=== PATIENT | female | born 1935 | race Caucasian/White ===

== ENCOUNTER 2016-12-14 08:14 | Inpatient (IN) | payer OTHER ==
[~2016-12-14] VITALS: Ht 170.2 cm; Wt 95.3 kg
--- NOTE | ~2016-12-14 | EKG ---
[address] [address] ELECTROCARDIOGRAM REPORT Name: LIZ BOWLING Room #: 442-P [facility] IN M.R.#: [id number] Admission: 12/14/16 Attend Phys: Pablo Ross MD Discharge: Date of : 37 Report #: [id number] THIS REPORT FOR: //name// [facility] ED Test Date: 2016-12-14 Test Time: 09:01:17 Pat Name: LIZ BOWLING Department: Room: [facility] Gender: F Relocation Coordinator: LENA : 1935 Requested By: Abiel Huang Order Number: [id number] MD: Jessee Bolanos Measurements Intervals [place] Rate: 108 P: 48 ID: [id number] QRS: 69 QRSD: 152 T: -18 QT: 375 QTc: 503 Interpretive Statements Sinus tachycardia Right bundle branch block Compared to ECG 11/05/2006 23:42:10 Sinus rhythm no longer present Electronically Signed On 12-14-2016 22:28:16 CDT by Jessee Bolanos [email or web address] <ELECTRONICALLY SIGNED> By: Jessee Bolanos MD 12/14/16 2228 0901 0901 Jessee Bolanos MD /LINDY
[2016-12-14 08:15] VITALS: BP 207/89
[2016-12-14] MEDS ORDERED: LIPITOR10 MG PO (08:20)
[2016-12-14] MEDS ORDERED: TIMOLOL MA0.25 %/5 M OP (08:20)
[2016-12-14] MEDS ORDERED: ASPIRIN325 PO (08:20)
[2016-12-14] MEDS ORDERED: NORVASC2.5 MG PO (08:20)
[2016-12-14] MEDS ORDERED: MULTI-VITAMIN1 EAC5 PO (08:21)
[2016-12-14 09:26] LABS: HEMOGLOBIN 12.8 gm/dL (12.0-15.0); MCH 30.5 pg (26.0-34.0); MCHC 34.5 g/dL (28.0-37.0); MCV 88.3 fL (80.0-100.0); PLATELET COUNT 156 thou/uL (150-400); RBC 4.19 mil/uL (4.20-5.00); RDW 14.9 % (10.5-14.5); WBC 12.3 thou/uL (4.0-11.0)
[2016-12-14 09:29] LABS: MANUAL DIFF YES
[2016-12-14 09:36] LABS: CALCIUM 8.8 mg/dL (8.5-10.1); CREATININE 0.9 mg/dL (0.6-1.0)
[2016-12-14 09:38] LABS: POTASSIUM 3.1 mmol/L (3.5-5.1)
[2016-12-14 09:43] LABS: ALBUMIN 3.2 g/dL (3.4-5.0); TOTAL BILIRUBIN 6.6 mg/dL (<0.1-1.0); TOTAL PROTEIN 6.7 g/dL (6.4-8.2); TROPONIN-I 0.07 ng/mL (<0.04-0.07)
[2016-12-14 09:54] LABS: ABSOLUTE NEUTROPHILS 11.2 thou/uL (1.4-8.2); ANISOCYTOSIS 1+; TOTAL CELL COUNT 100
[2016-12-14 10:27] LABS: URINE BILIRUBIN 2+ (Negative); URINE BLOOD 1+ (Negative); URINE COLOR YELLOW; URINE GLUCOSE-RANDOM* NEGATIVE (Negative); URINE KETONES 2+ (Negative); URINE NITRITE POSITIVE (Negative); URINE PROTEIN (DIPSTICK) 1+ (Negative)
[2016-12-14 10:29] LABS: ICTOTEST (BILI CONFIRMATORY) Positive (Negative)
[2016-12-14 10:50] LABS: SQUAMOUS 4-10 Moderate /LPF (0-3); URINE WBC 6-15 Few /HPF (0-5)
[2016-12-14 10:51] LABS: BACTERIA >30 Many /HPF (None Seen); CASTS None Seen /LPF (None Seen); CRYSTALS None Seen /LPF (None Seen); URINE RBC 0-2 Rare /HPF (0-2)
[2016-12-14 11:10] VITALS: BP 182/83
[2016-12-14 11:37] VITALS: BP 178/71
[2016-12-14 15:49] VITALS: BP 141/63
[2016-12-14 19:48] VITALS: BP 138/49
[2016-12-15 04:43] VITALS: BP 148/50
[2016-12-15 05:10] LABS: HEMATOCRIT 31.4 % (37.0-47.0); MCH 30.9 pg (26.0-34.0); MCHC 34.8 g/dL (28.0-37.0); MCV 88.6 fL (80.0-100.0); RBC 3.55 mil/uL (4.20-5.00); RDW 15.4 % (10.5-14.5); WBC 6.8 thou/uL (4.0-11.0)
[2016-12-15 05:14] LABS: INR 1.2; PROTIME 11.9 Seconds (9.3-11.4)
[2016-12-15 05:27] LABS: ALBUMIN 2.5 g/dL (3.4-5.0); POTASSIUM 3.4 mmol/L (3.5-5.1); TOTAL BILIRUBIN 6.7 mg/dL (<0.1-1.0)
[2016-12-15 05:50] LABS: TOTAL PROTEIN 5.9 g/dL (6.4-8.2)
[2016-12-15 07:48] VITALS: BP 146/52
[2016-12-15 18:00] VITALS: BP 175/64
[2016-12-15 18:30] VITALS: BP 170/63
[2016-12-15 19:07] VITALS: BP 161/54
[2016-12-15 21:05] VITALS: BP 154/53
[2016-12-16] VITALS (11 sets, daily range): BP systolic 147–191; BP diastolic 49–88
[2016-12-16 06:31] LABS: HEMOGLOBIN 10.5 gm/dL (12.0-15.0); MCHC 34.9 g/dL (28.0-37.0); MCV 88.7 fL (80.0-100.0); RBC 3.38 mil/uL (4.20-5.00); RDW 15.5 % (10.5-14.5); WBC 6.6 thou/uL (4.0-11.0)
[2016-12-16 06:53] LABS: ALBUMIN 2.3 g/dL (3.4-5.0); CALCIUM 8.4 mg/dL (8.5-10.1); CREATININE 0.9 mg/dL (0.6-1.0); POTASSIUM 3.9 mmol/L (3.5-5.1); TOTAL BILIRUBIN 3.3 mg/dL (<0.1-1.0); TOTAL PROTEIN 5.7 g/dL (6.4-8.2)
[2016-12-17] VITALS (7 sets, daily range): BP systolic 150–198; BP diastolic 51–60
[2016-12-17 06:23] LABS: ABSOLUTE NEUTROPHILS 4.5 thou/uL (1.4-8.2); BASOPHILS 0.4 % (0.0-2.0); EOSINOPHILS 2.2 % (0.0-3.0); HEMATOCRIT 31.2 % (37.0-47.0); HEMOGLOBIN 10.7 gm/dL (12.0-15.0); LYMPHOCYTES 15.9 % (24.0-44.0); MCH 30.5 pg (26.0-34.0); MCHC 34.5 g/dL (28.0-37.0); MCV 88.5 fL (80.0-100.0); MONOCYTES 4.6 % (1.0-8.0); PLATELET COUNT 152 thou/uL (150-400); POLYS 76.9 % (36.0-66.0); RBC 3.52 mil/uL (4.20-5.00); RDW 15.2 % (10.5-14.5); WBC 5.8 thou/uL (4.0-11.0)
[2016-12-17 06:32] LABS: MANUAL DIFF NO
[2016-12-17 06:41] LABS: ALBUMIN 2.2 g/dL (3.4-5.0); CALCIUM 8.6 mg/dL (8.5-10.1); CREATININE 0.7 mg/dL (0.6-1.0); MAGNESIUM 1.8 mg/dL (1.8-2.4); POTASSIUM 3.5 mmol/L (3.5-5.1); TOTAL PROTEIN 5.8 g/dL (6.4-8.2)
[2016-12-18 03:07] VITALS: BP 154/67
[2016-12-18 07:16] VITALS: BP 166/63
[2016-12-18 10:14] VITALS: BP 166/63
[2016-12-18 16:12] VITALS: BP 174/76
[2016-12-18 20:09] VITALS: BP 152/61
[2016-12-19 03:46] LABS: HEMATOCRIT 31.4 % (37.0-47.0); HEMOGLOBIN 10.9 gm/dL (12.0-15.0); MCH 30.4 pg (26.0-34.0); MCHC 34.6 g/dL (28.0-37.0); MCV 87.8 fL (80.0-100.0); RBC 3.58 mil/uL (4.20-5.00); RDW 14.7 % (10.5-14.5); WBC 5.3 thou/uL (4.0-11.0)
[2016-12-19 04:00] LABS: ALBUMIN 2.2 g/dL (3.4-5.0); CALCIUM 8.5 mg/dL (8.5-10.1); CREATININE 0.8 mg/dL (0.6-1.0); POTASSIUM 3.3 mmol/L (3.5-5.1); TOTAL BILIRUBIN 1.2 mg/dL (<0.1-1.0); TOTAL PROTEIN 5.9 g/dL (6.4-8.2)
[2016-12-19 04:20] VITALS: BP 164/56
[2016-12-19 07:32] VITALS: BP 150/56
[2016-12-19 15:52] VITALS: BP 122/84
[2016-12-19 20:31] VITALS: BP 173/63
[2016-12-20 04:24] LABS: HEMATOCRIT 32.6 % (37.0-47.0); HEMOGLOBIN 11.2 gm/dL (12.0-15.0); MCH 30.3 pg (26.0-34.0); MCHC 34.4 g/dL (28.0-37.0); MCV 88.2 fL (80.0-100.0); RBC 3.7 mil/uL (4.20-5.00); RDW 14.5 % (10.5-14.5); WBC 5.5 thou/uL (4.0-11.0)
[2016-12-20 04:49] LABS: ALBUMIN 2.4 g/dL (3.4-5.0); CALCIUM 8.6 mg/dL (8.5-10.1); CREATININE 0.9 mg/dL (0.6-1.0); POTASSIUM 3.6 mmol/L (3.5-5.1); TOTAL BILIRUBIN 1.1 mg/dL (<0.1-1.0); TOTAL PROTEIN 6.2 g/dL (6.4-8.2)
[2016-12-20 05:00] VITALS: BP 155/60
[2016-12-20 08:00] VITALS: BP 143/62
[2016-12-20] MEDS ORDERED: FLAGYL500 MG PO (09:49)
[2016-12-20] MEDS ORDERED: AMLODIPINE BESY10 MG PO (09:49)
[2016-12-20] MEDS ORDERED: CIPRO500 MG PO (09:49)
[2016-12-20] MEDS ORDERED: NORCO 5-325 TA1 EACH PO (09:49)
== END 2016-12-20 11:17 | disposition home health service (06) | DRG 871 ==
LOC: ER 08:14 → 4S 10:45 → EROBS 10:45 → 4S 11:13
PROVIDERS: Emergency Medicine; Internal Medicine Gastroenterology; Nurse Practitioner; Nurse Practitioner Adult Health; Otolaryngology
PROC: 0F9430Z Drainage of Gallbladder with Drainage Device, Percutaneous Approach (ICD-10-PCS; principal; 2016-12-15)
PROC: BF43ZZZ Ultrasonography of Gallbladder and Bile Ducts (ICD-10-PCS; principal; 2016-12-15)
DX: A41.9 Sepsis, unspecified organism (principal); K85.10 Biliary acute pancreatitis without necrosis or infection; K80.62 Calculus of gallbladder and bile duct with acute cholecystitis without obstruction; N39.0 Urinary tract infection, site not specified; E46 Unspecified protein-calorie malnutrition; I10 Essential (primary) hypertension; E78.00 Pure hypercholesterolemia, unspecified; E78.5 Hyperlipidemia, unspecified; E87.6 Hypokalemia; H40.9 Unspecified glaucoma; I25.10 Atherosclerotic heart disease of native coronary artery without angina pectoris; Z95.5 Presence of coronary angioplasty implant and graft; Z68.32 Body mass index [BMI] 32.0-32.9, adult; Z90.710 Acquired absence of both cervix and uterus; Z88.2 Allergy status to sulfonamides; Z82.49 Family history of ischemic heart disease and other diseases of the circulatory system
CPT/HCPCS: 10100

== ENCOUNTER → 2017-01-08 | Outpatient (CLI) | payer OTHER ==
[~2017-01-08] VITALS: Ht 170.2 cm; Wt 92.1 kg
[~2017-01-08] MED LIST: AMLODIPINE BESY10 MG PO; ASPIRIN325 PO; CIPRO500 MG PO; FLAGYL500 MG PO; LIPITOR10 MG PO; MULTI-VITAMIN1 EAC5 PO; NORCO 5-325 TA1 EACH PO; NORVASC2.5 MG PO; TIMOLOL MA0.25 %/5 M OP
[2017-01-08 10:12] VITALS: BP 155/69
[2017-01-08 11:22] LABS: ABSOLUTE NEUTROPHILS 2.9 thou/uL (1.4-8.2); EOSINOPHILS 4.4 % (0.0-3.0); HEMATOCRIT 34.7 % (37.0-47.0); HEMOGLOBIN 12.1 gm/dL (12.0-15.0); LYMPHOCYTES 27.6 % (24.0-44.0); MCH 30.2 pg (26.0-34.0); MCHC 34.9 g/dL (28.0-37.0); MCV 86.4 fL (80.0-100.0); MONOCYTES 7.8 % (1.0-8.0); PLATELET COUNT 196 thou/uL (150-400); POLYS 59.2 % (36.0-66.0); RBC 4.02 mil/uL (4.20-5.00); RDW 15.1 % (10.5-14.5)
[2017-01-08 11:28] LABS: MANUAL DIFF NO
[2017-01-08 11:33] LABS: ALBUMIN 3.2 g/dL (3.4-5.0); CALCIUM 9.2 mg/dL (8.5-10.1); CREATININE 0.9 mg/dL (0.6-1.0); POTASSIUM 3.9 mmol/L (3.5-5.1); TOTAL BILIRUBIN 0.9 mg/dL (<0.1-1.0); TOTAL PROTEIN 6.5 g/dL (6.4-8.2)
== END | disposition home or self-care (01) ==
LOC: SPEC 09:14
PROVIDERS: Family Medicine
DX: K81.9 Cholecystitis, unspecified (principal); I10 Essential (primary) hypertension; E78.5 Hyperlipidemia, unspecified; Z90.710 Acquired absence of both cervix and uterus; Z90.49 Acquired absence of other specified parts of digestive tract; Z95.1 Presence of aortocoronary bypass graft

== ENCOUNTER → 2017-01-15 | Outpatient (CLI) | payer OTHER | LOC: ULTRA 12:33 | DX: M79.605 Pain in left leg (principal); M79.89 Other specified soft tissue disorders ==

== ENCOUNTER 2017-02-13 05:09 | Inpatient (IN) | payer OTHER ==
[~2017-02-13] VITALS: Ht 170.2 cm; Wt 86.2 kg
--- NOTE | ~2017-02-13 | O ---
[facility] Yonatan [place] [address] OPERATIVE REPORT Name: LIZ BOWLING Room #: 404-P ADM IN M.R.#: [id number] Admission: 02/13/17 Attend Phys: Amie Garcia MD, Discharge: Date of : 37 Report #: [id number] THIS REPORT FOR: //name// CC: Amie Guzmanaretha DATE OF SERVICE: 02/13/2017 PREOPERATIVE DIAGNOSES: 1. Chronic cholecystitis with an indwelling percutaneous cholecystostomy tube. 2. Hypertension. 3. Hyperlipidemia. POSTOPERATIVE DIAGNOSES: 1. Chronic cholecystitis with an indwelling percutaneous cholecystostomy tube. 2. Hypertension. 3. Hyperlipidemia. 4. Incarcerated incisional ventral hernia. PROCEDURES PERFORMED: 1. Laparoscopic cholecystectomy with intraoperative cholangiogram. 2. Laparoscopic lysis of adhesions. 3. Laparoscopic primary suture repair of an incarcerated incisional ventral hernia. SURGEON: Amie Garcia MD LIMOUSINE RENTAL CLERK: Talib Vaca MD ANESTHESIA: General endotracheal anesthesia. ESTIMATED BLOOD LOSS: Minimal (less than 5 mL). COMPLICATIONS: None appreciated. SPECIMENS: Gallbladder to pathology. INDICATIONS: The patient is an 81-year-old female who presents today exactly 8 weeks status post placement of a percutaneous cholecystostomy tube that was performed by interventional radiology for severe acute cholecystitis with gallstone pancreatitis. The patient ultimately improved remarkably over her initial period and has returned to baseline function at this time point. As it has been 8 weeks' time, indication was for definitive surgical management today with intraoperative findings of an incarcerated incisional ventral hernia that required primary suture repair to prevent future incarceration. [facility] [address] [place] [address] OPERATIVE REPORT Name: LIZ BOWLING Room #: 404-P [facility] IN M.R.#: [id number] Admission: 02/13/17 Attend Phys: Amie Garcia MD, Discharge: Date of : 37 Report #: [id number] PROCEDURE: After explaining the risks, benefits and alternatives of the procedure with the patient in detail in the preoperative holding area and obtaining written consent, the patient was brought to the operating room and placed supine on the operating room table. After conducting a thorough timeout procedure, verifying correct patient and procedure, the patient was given general endotracheal anesthesia. Once adequate anesthesia was obtained, her SCDs were hooked up to pneumatic compression device. She was given a preoperative dose of antibiotics in line with the SCIP protocol. The patient's abdomen was now prepped and draped in standard surgical sterile fashion. 5 mL of 0.5% Marcaine with epinephrine were used to anesthetize the skin in the right upper quadrant and midclavicular line in a subcostal location. A #11 bladed scalpel was used to create a small skin karlee at this location. A 5-mm Visiport was placed over 0-degree 5-mm laparoscope and was introduced through this incision site. Once intraabdominal placement was verified visually, the obturator for the trocar and laparoscope were both removed and the abdomen was insufflated to 15 mmHg using carbon dioxide gas. The laparoscope was changed to a 5-mm 30-degree laparoscope, which was reintroduced through this trocar. The entire abdomen was evaluated to ensure no injury upon entry. There were marked adhesions in the mid abdomen from her prior lower midline incision. At this juncture, I placed two additional 5-mm trocars. The first being in the subxiphoid location and the second being in the patient's right lateral flank in a subcostal location. Both additional trocars were placed under direct vision after anesthetizing the skin at each location with 5 mL of 0.5% Marcaine with epinephrine and I had created small skin nicks using #15 bladed scalpel. I now proceeded to perform a laparoscopic lysis of adhesions to take down the omentum that was plastered to the posterior aspect of the anterior abdominal wall in the mid abdomen. This was confluent low in the pelvis and as such, I took it down only to the level of the umbilicus, which is where we saw evidence of an incarcerated incisional ventral hernia in the infraumbilical location. Evaluating her gallbladder, the angle would not be ideal entering in the infraumbilical location and as such, I laparoscopically primarily suture repaired this incisional hernia defect closed, which was tied down under direct vision to ensure I do not catch a loop of bowel or omentum in the repair. This adequately performed the laparoscopic primary suture repair of her incarcerated incisional ventral hernia. Now that I cleared off the abdominal wall in the supraumbilical location, I anesthetized the skin in the supraumbilical location with 5 mL of 0.5% Marcaine with epinephrine and I created a 1-cm transverse skin incision at that location. An 11-mm Visiport was now placed under direct vision through this incision site. The laparoscope was now removed and placed through the supraumbilical trocar and the patient was positioned in steep reverse Trendelenburg position with right side elevated. Using the inferolateral most port along the patient's right flank, the fundus of the gallbladder was grasped and retracted cephalad. Careful tedious dissection was now undertaken down around the cholecystocystic junction using combination of Harmonic scalpel and [place] dissector. Once I had attained a critical view, namely the cystic duct emanating from the infundibulum of the gallbladder and [facility] [address] [place] [address] OPERATIVE REPORT Name: LIZ BOWLING Room #: 404-P ADM IN M.R.#: [id number] Admission: 02/13/17 Attend Phys: Amie Garcia MD, Discharge: Date of : 37 Report #: [id number] coursing in to the common bile duct as well as cystic artery running the surface of the gallbladder and I had created a window behind each, I transected the cystic artery nearest the gallbladder side using Harmonic scalpel for long-term hemostasis. I now proceeded to perform an intraoperative cholangiogram through her indwelling percutaneous cholecystostomy tube. A 60 mL syringe with contrast was attached to her percutaneous cholecystostomy tube and a cholangiogram was obtained. We had opacification of the cystic duct, which was seen radiographically as well as under direct vision with laparoscope and we had antegrade flow of contrast into the common bile duct and ultimately into the duodenum with no evidence of filling defects or obstruction. Both intra and extrahepatic biliary tree became opacified with no filling defects or obstruction. I now removed the percutaneous cholecystostomy tube externally by cutting the suture anchoring it to the skin and transecting the catheter itself, which released the internal suture and then catheter was removed and passed off the field. I now proceeded to place three clips along the cystic duct nearest to the common bile duct side and one clip along the cystic duct nearest to the gallbladder side and transected between them using Harmonic scalpel to help seal the end of the duct closed. Further retraction at the infundibulum of the gallbladder in the cephalad direction allowed me to elevate the gallbladder off the liver bed using Harmonic scalpel for hemostasis. Once I arrived upon the level of the tract from the percutaneous cholecystostomy tube, this was transected at the abdominal wall level to help seal the tract closed as well as at the level of the gallbladder fossa on the back side of the gallbladder to help seal the liver defect as well. We had no evidence of bile spillage or leakage at this time and had complete hemostasis. Now that the gallbladder was completely detached, the laparoscope was removed and placed back to the 5-mm trocar in the right midclavicular subcostal location and the EndoCatch bag was placed in the supraumbilical trocar. The specimen was placed within it under direct vision. The pursestring suture was drawn and the specimen was removed from the abdomen under direct vision. One final evaluation of the gallbladder fossa showed complete hemostasis with no spillage and the clips were placed securely along the cystic duct stump remnant. I now closed the supraumbilical fascial incision using 0 PDS suture on a Nam-Diana needle under direct vision. This was tied down under direct vision to ensure I did not catch a loop of bowel or omentum in my suture repair. All remaining ports were removed under direct vision as the abdomen was fully desufflated. 4-0 Monocryl was used in a standard subcuticular fashion for all skin incisions and Dermabond glue was applied to all skin wounds. The gallbladder was opened on the back table showing significant findings of marked cholesterolosis and three punctate gallstones, but no other pathologic findings were identified. At the end of the procedure, all instrument, needle and sponge counts were correct. The patient tolerated the [address] [address] OPERATIVE REPORT Name: LIZ BOWLING Room #: 404-P [facility] IN M.R.#: [id number] Admission: 02/13/17 Attend Phys: Amie Garcia MD, Discharge: Date of : 37 Report #: [id number] procedure without incident, was awakened in the operating room and transitioned to the recovery room in stable condition with no apparent complications. <ELECTRONICALLY SIGNED> By: Amie Garcia MD, FACS 02/14/17 0955 [id number] 1624 Amie Garcia MD, FACS /nt
--- NOTE | ~2017-02-13 | S ---
[facility] [place] [address] SURGICAL PATH RPT PROCEDURE Name: LIZ BOWLING Room #: 404-P [facility] IN M.R.#: [id number] Admission: 02/13/17 Date of : 37 Discharge: 02/14/17 Report #: [id number] Path Case #: [id number] PATHOLOGY REPORT COLLECTION DATE: 02/13/2017 RECEIVED DATE: 02/13/2017 SUBMITTING PHYS: Dr. Amie Garcia OTHER PHYS: Dr. Carlos Tanner SPECIMEN(S) RECEIVED: A.Gallbladder * * * * * * * * * * * * FINAL DIAGNOSIS: "Gallbladder," cholecystectomy: - Chronic cholecystitis. (CLW:mgr; 02/16/2017) PATHOLOGIST: Elissa Maldonado M.D. REPORT ELECTRONICALLY SIGNED BY: Elissa Maldonado M.D. DATE/TIME: 02/16/2017 21:23 * * * * * * * * * * * * GROSS PATHOLOGY: Received in formalin labeled "Liz Bowling, gallbladder," is a 6.4 x 5.4 x 2.0 cm, previously opened gallbladder with bluegrayish, slightly vascular serosal surfaces. Opening the gallbladder reveals dark toussaint, velvety mucosa and an average wall thickness of 0.2 cm. Calculi are not present (upon filtration of the specimen container and contents) and no masses are noted grossly. Senior [employer] sections from the body and fundus are submitted along with the proximal margin in cassette A1. (TSD; 02/13/2017) CLINICAL HISTORY: Gallbladder disease INITIAL CPT CODE(S): A; 90710 Professional services performed by [facility] at [facility] [address], [place] [address] Technical services performed by [facility] at [address] [place] [address], [address] [address]. [facility] [address] [place] [address] SURGICAL PATH RPT PROCEDURE Name: LIZ BOWLING Room #: 404-P [facility] IN M.R.#: [id number] Admission: 02/13/17 Date of : 37 Discharge: 02/14/17 Report #: [id number] Path Case #: [id number] [facility] [address] [address] PHONE: [phone] DIRECTOR: Jose Carlos Prabhakar M.D. * * * END OF REPORT * * *
[~2017-02-13 05:09] MED LIST changes: +BETIMOL5 ML OPHTHALMIC; +NORVASC10 MG PO
[2017-02-13 12:15] VITALS: BP 119/58
[2017-02-13] MEDS ORDERED: HYDROCODONE-AP1 EAC6 PO (14:36)
[2017-02-13 16:20] VITALS: BP 132/57
[2017-02-13 19:23] VITALS: BP 127/45
[2017-02-13 23:35] VITALS: BP 139/55
[2017-02-14 03:42] VITALS: BP 117/47
[2017-02-14 05:58] LABS: HEMATOCRIT 30.2 % (37.0-47.0); HEMOGLOBIN 10.7 gm/dL (12.0-15.0); MCH 30.3 pg (26.0-34.0); MCHC 35.4 g/dL (28.0-37.0); MCV 85.5 fL (80.0-100.0); RBC 3.53 mil/uL (4.20-5.00); RDW 15.7 % (10.5-14.5); WBC 7.5 thou/uL (4.0-11.0)
[2017-02-14 06:08] LABS: CALCIUM 8.6 mg/dL (8.5-10.1); CREATININE 1.2 mg/dL (0.6-1.0); POTASSIUM 3.9 mmol/L (3.5-5.1)
[2017-02-14 07:06] VITALS: BP 118/40
[2017-02-14 09:53] VITALS: BP 118/40
== END 2017-02-14 11:39 | disposition home or self-care (01) | DRG 418 ==
LOC: OR 05:09 → TBA 05:09 → OR 13:58 → 4N 15:38
PROVIDERS: Surgery
PROC: 0FT44ZZ Resection of Gallbladder, Percutaneous Endoscopic Approach (ICD-10-PCS; principal; 2017-02-13)
PROC: 0WQF4ZZ Repair Abdominal Wall, Percutaneous Endoscopic Approach (ICD-10-PCS; 2017-02-13)
PROC: BF121ZZ Fluoroscopy of Gallbladder using Low Osmolar Contrast (ICD-10-PCS; 2017-02-13)
DX: K81.1 Chronic cholecystitis (principal); K43.0 Incisional hernia with obstruction, without gangrene; I10 Essential (primary) hypertension; E78.5 Hyperlipidemia, unspecified; E78.00 Pure hypercholesterolemia, unspecified; K66.0 Peritoneal adhesions (postprocedural) (postinfection); Z90.89 Acquired absence of other organs; Z90.710 Acquired absence of both cervix and uterus
CPT/HCPCS: 10790; 50010; 50101; 50249; 50411; 50555; 50558; 50962; 51975; 52265; 53307; 54022; 54118; 55245; 55317; 56462; 56525; 56526; 62110; 62900; 70005

== ENCOUNTER → 2018-08-05 | Outpatient (CLI) | payer OTHER ==
[~2018-08-05] MED LIST changes: +HYDROCODONE-AP1 EAC6 PO
== END ==
LOC: BC 12:36
DX: N63.10 Unspecified lump in the right breast, unspecified quadrant (principal); N63.20 Unspecified lump in the left breast, unspecified quadrant